=== PATIENT | female | born 1965 | race Caucasian/White ===

== ENCOUNTER → 2016-11-09 | Outpatient (CLI) | payer BC ==
[~2016-11-09] MED LIST: ASCA500 PO; BUPRTAB51 PO; CETI10TA84 PO; CHOL1000 PO; CYAN10005 PO; CYAN100T PO; FRRS300 PO; LORA-741 PO; MULT-506 PO; OMEG10007 PO; PRLSR20 PO; PYRI100T4 PO; RIZA10TA18 PO; SNG10 PO; SUMA100T16 PO; TOPI50TA24 PO; TRAZ50TA35 PO; VNTHFA/IN INH; [UNRECOGNIZED DRUG - REMARK]
--- NOTE | 2016-11-09 10:29 | DIAGNOSTIC IMAGING REPORT ---
(BARIUM SWALLOW) ESOPHAGUS CLINICAL HISTORY: Dysphagia. Laryngopharyngeal reflux. COMPARISON STUDY: None FLUOROSCOPY TIME: 1.9 minutes. FINDINGS: 27 fluoroscopic images were obtained. There was mild esophageal dysmotility. No esophageal mass or stricture was identified. No mucosal abnormality was identified. There was persistent holdup of a 13 mm barium tablet at the gastroesophageal junction. No stricture was identified at this level on the remainder of the images. IMPRESSION: 1. Persistent holdup of a 13 mm barium tablet at the gastroesophageal junction. No stricture identified at this level on the remainder of the images. This finding is of uncertain significance and a follow-up endoscopy is recommended to exclude an occult stricture. 2. Mild esophageal dysmotility. Electronically signed by: Servando Sheets M.D. 11/09/2016 10:28 AM Dictated Date/Time: 11/09/2016 10:26 AM
== END | disposition home or self-care (01) ==
LOC: C.RAD 09:33
PROVIDERS: ATTEND Surgery
DX: K21.9 Gastro-esophageal reflux disease without esophagitis (principal)

== ENCOUNTER → 2016-11-22 | Day surgery (SDC) | payer BC ==
[2016-11-21 13:07] VITALS: BMI 37.0
[~2016-11-22] VITALS: Ht 154.9 cm; Wt 89.5 kg
[~2016-11-22] MED LIST changes: -CYAN100T PO; -FRRS300 PO; +LIDOCAINE HCL 2% 2 ML VIAL (20MG/ML) ONE; +MIDAZOLAM HCL 1 MG/ML 2ML VIAL ONE; +ONDANSETRON INJ 2 MG/ML 2 ML VIAL ONE; +PROPOFOL IV EMULSION 10 MG/ML 20 ML VIAL IV ONE; -SNG10 PO; -SUMA100T16 PO; -[UNRECOGNIZED DRUG - REMARK]
[2016-11-22 08:15] VITALS: Ht 154.9 cm; Wt 89.5 kg
--- NOTE | 2016-11-22 08:38 | Endo History and Physical ---
History & Physical Date of Service: Nov 22, 2016. Chief Complaint: DYSPHAGIA Referring Physician: DR. MONTGOMERY History of Present Illness 51 yo CF who presents for EGD secondary to dysphagia. Past Surgical History Hx Cardiac Surgery: No Hx Internal Defibrillator: No Hx Pacemaker: No Hx Abdominal Surgery: Yes (UTERINE ABLATION) Hx of Implantable Prosthesis: No Hx Post-Op Nausea and Vomiting: No Hx Cancer Surgery: No Hx Thoracic Surgery: No Hx Orthopedic: Yes (LT HAND FINGER GROWTH REMOVAL) Hx Urinary Tract Surgery: No Family History None Social History Smoking Status: Never Smoker Hx Substance Use: No Hx Alcohol Use: No Allergies Uncoded Allergies: DECONGESTANTS (Adverse Reaction, Mild, INABILITY TO SLEEP, 11/21/16) Current Medications Reported Home Medications Medications Dose Route/Sig Max Daily Dose Days Date Category Vitamin B6 (Pyridoxine HCl) 100 Mg Tab 100 Mg PO QAM 11/21/16 Reported Vitamin D3 (Cholecalciferol) 1,000 Unit Tab 1 Tab PO QAM 11/21/16 Reported Vitamin C (Ascorbic Acid) 500 Mg Tab 1 Tab PO QAM 11/21/16 Reported Vitamin B-12 (Cyanocobalamin) 1,000 Mcg Tab 1,000 Mcg PO QAM 11/21/16 Reported Ventolin Hfa (Albuterol) 200 Puffs/99122 Mcg Aers 2-4 Puffs INH Q6H PRN 11/21/16 Reported Maxalt (Rizatriptan Benzoate) 10 Mg Tab 10 Mg PO UD PRN 11/21/16 Reported Prilosec (Omeprazole) 20 Mg Capcr 20 Mg PO QAM 11/21/16 Reported [place]-3 (Fish Oil) 1 Ea Cap 1 Cap PO BID 11/21/16 Reported Multivitamin (Multivitamins) Tab 1 Tab PO QAM 11/21/16 Reported Trazodone (Trazodone HCl) 50 Mg Tab 50 Mg PO HS PRN 11/21/16 Reported Ativan (Lorazepam) 0.5 Mg Tab 0.5 Mg PO Q4-6H PRN 11/21/16 Reported Zyrtec (Cetirizine HCl) 10 Mg Tab 10 Mg PO HS 11/21/16 Reported Topamax (Topiramate) 50 Mg Tab 50 Mg PO BID 11/21/16 Reported Wellbutrin Xl (Bupropion Hcl) 300 Mg Tab 450 Mg PO QAM 11/21/16 Reported Vital Signs Weight (Kilograms): 89.55 Height (Feet): 5 Height (Inches): 1 Date Time Temp Pulse Resp B/P Pulse Ox O2 Delivery O2 Flow Rate FiO2 11/22/16 08:16 36.8 77 20 133/81 96 Room Air Physical Exam General Appearance: WD/WN, no apparent distress Respiratory/Chest: Auscultation: breath sounds normal Cardiovascular: Heart Auscultation: RRR Abdomen: Bowel Sounds: normal Inspection & Palpation: soft, non-distended, no tenderness, guarding & rebound Assessment and Plan Assessment: 51 yo CF who presents for EGD secondary to dysphagia. Plan: Proceed with EGD.
--- NOTE | 2016-11-22 09:00 | GI REPORT ---
Procedure Date: 11/22/2016 8:11 AM Procedure: Upper GI endoscopy Indications: Dysphagia Medicines: Monitored Anesthesia Care Complications: No immediate complications. Estimated Blood Loss: Estimated blood loss: none. Procedure: Pre-Anesthesia Assessment: - Prior to the procedure, a History and Physical was performed, and patient medications and allergies were reviewed. The patient's tolerance of previous anesthesia was also reviewed. The risks and benefits of the procedure and the sedation options and risks were discussed with the patient. All questions were answered, and informed consent was obtained. Prior Anticoagulants: The patient has taken no previous anticoagulant or antiplatelet agents. ASA Grade Assessment: II - A patient with mild systemic disease. After reviewing the risks and benefits, the patient was deemed in satisfactory condition to undergo the procedure. After obtaining informed consent, the endoscope was passed under direct vision. Throughout the procedure, the patient's blood pressure, pulse, and oxygen saturations were monitored continuously. The scope was introduced through the mouth, and advanced to the second part of duodenum. The upper GI endoscopy was accomplished without difficulty. The patient tolerated the procedure well. Findings: No endoscopic abnormality was evident in the esophagus to explain the patient's complaint of dysphagia. It was decided, however, to proceed with dilation of the entire esophagus. A guidewire was placed and the scope was withdrawn. Dilation was performed with a Savary dilator with mild resistance at 54 Fr. A small hiatus hernia was present. Localized mild inflammation characterized by erythema was found in the gastric antrum. Biopsies were taken with a cold forceps for histology. The examined duodenum was normal. Impression: - No endoscopic esophageal abnormality to explain patient's dysphagia. Esophagus dilated. Dilated. - Small hiatus hernia. - Gastritis. Biopsied. - Normal examined duodenum. Recommendation: - Resume previous diet. - Continue present medications. - Await pathology results. - Return to GI office as previously scheduled. - If no improvement in symptoms, recommend formal esophageal manometry study. Leighton Easley, DO 11/22/2016 9:00:14 AM This report has been signed electronically. Note Initiated On: 11/22/2016 8:11 AM I attest to the content of the Intraoperative Record and orders documented therein, exceptions below
--- NOTE | 2016-11-22 09:05 | Discharge Instructions ---
Endoscopy Patient Instructions Date / Procedure(s) Performed Nov 22, 2016. EGD Allergy Information Uncoded Allergies: DECONGESTANTS (Adverse Reaction, Mild, INABILITY TO SLEEP, 11/21/16) Discharge Date / Findings Nov 22, 2016. Gastritis s/p biopsies Hiatal hernia Esophageal dysphagia s/p dilation Medication Instructions OK to resume all medications today as prescribed Reported Home Medications Medications Dose Route/Sig Max Daily Dose Days Date Category Vitamin B6 (Pyridoxine HCl) 100 Mg Tab 100 Mg PO QAM 11/21/16 Reported Vitamin D3 (Cholecalciferol) 1,000 Unit Tab 1 Tab PO QAM 11/21/16 Reported Vitamin C (Ascorbic Acid) 500 Mg Tab 1 Tab PO QAM 11/21/16 Reported Vitamin B-12 (Cyanocobalamin) 1,000 Mcg Tab 1,000 Mcg PO QAM 11/21/16 Reported Ventolin Hfa (Albuterol) 200 Puffs/80513 Mcg Aers 2-4 Puffs INH Q6H PRN 11/21/16 Reported Maxalt (Rizatriptan Benzoate) 10 Mg Tab 10 Mg PO UD PRN 11/21/16 Reported Prilosec (Omeprazole) 20 Mg Capcr 20 Mg PO QAM 11/21/16 Reported [place]-3 (Fish Oil) 1 Ea Cap 1 Cap PO BID 11/21/16 Reported Multivitamin (Multivitamins) Tab 1 Tab PO QAM 11/21/16 Reported Trazodone (Trazodone HCl) 50 Mg Tab 50 Mg PO HS PRN 11/21/16 Reported Ativan (Lorazepam) 0.5 Mg Tab 0.5 Mg PO Q4-6H PRN 11/21/16 Reported Zyrtec (Cetirizine HCl) 10 Mg Tab 10 Mg PO HS 11/21/16 Reported Topamax (Topiramate) 50 Mg Tab 50 Mg PO BID 11/21/16 Reported Wellbutrin Xl (Bupropion Hcl) 300 Mg Tab 450 Mg PO QAM 11/21/16 Reported Provider Instructions Activity Restrictions - No exercising or heavy lifting for 24 hours. - Do not drink alcohol the day of the procedure. - Do not drive a car or operate machinery until the day after the procedure. - Do not make any important decisions or sign important papers in 24 hours after the procedure. Following Day: - Return to full activity which may include returning to work/school. Diet Start your diet with liquids and light foods (jello, soup, juice, toast). Then eat your usual diet if not nauseated. Treatment For Common After Affects For mild abdominal pain, bloating, or excessive gas: - Rest - Eat lightly - Lie on right side Follow-Up Information Follow-up with DR. MONTGOMERY as scheduled Anesthesia Information What You Should Know You have had a procedure that required some medicine to reduce anxiety and discomfort. This treatment is called moderate sedation. After receiving the treatment, you may be sleepy, but you will be able to breathe on your own. The effects of the treatment may last for several hours. Follow these instructions along with Activity/Diet recommendations noted above: * Do NOT do anything where dizziness or clumsiness would be dangerous. * Rest quietly at home today, then you can be up and about tomorrow. * Have a responsible person stay with you the rest of today. * You may have had an I.V. today. If so, you may take the dressing off later today. Recommendations Call your doctor if: * Trouble breathing * Continuous vomiting for more than 24 hours * Temperature above 101 degrees * Severe abdominal pain or bloating * Pain not relieved by pain medicine ordered * There is increased drainage or redness from any incision * A large amount of rectal bleeding greater than 2-3 tablespoons. (If you had a polyp/s removed or have hemorrhoids, a small amount of blood - from the rectum is to be expected.) * You have any unanswered questions or concerns. IN THE EVENT OF A SERIOUS EMERGENCY, GO TO THE NEAREST EMERGENCY ROOM Your discharge instructions were prepared by provider Leighton Easley. Patient Instructions Signature Page Chasity Garg Patient (or Guardian) Signature/Date: I have read and understand the instructions given to me by my caregivers. Caregiver/RN/Doctor Signature/Date: The above-named patient and/or guardian has received patient instructions on this date. + Original Patient Signature Page (only) stays with chart. Please make copy for patient.
[2016-11-22 09:30] VITALS: BP 120/62; PULSE 67; O2SAT 100
--- NOTE | 2016-11-22 10:12 | Anesthesiology Progress Note ---
Anesthesia Post Op Note Date & Time Nov 22, 2016 at 10:11 Vital Signs Pain Intensity: 0 Vital Signs Past 12 Hours Date Time Temp Pulse Resp B/P Pulse Ox O2 Delivery O2 Flow Rate FiO2 11/22/16 09:30 67 20 120/62 100 Room Air 11/22/16 09:16 64 20 117/57 100 Room Air 11/22/16 09:01 75 20 102/56 98 Room Air 11/22/16 08:16 36.8 77 20 133/81 96 Room Air Notes Mental Status: alert / awake / arousable Nausea / Vomiting: adequately controlled Pain: adequately controlled Airway Patency, RR, SpO2: stable & adequate Hydration State: stable & adequate Anesthetic Complications: no major complications apparent
== END | disposition home or self-care (01) ==
LOC: C.GI 07:56
PROVIDERS: ATTEND Internal Medicine
DX: R13.10 Dysphagia, unspecified (principal); K44.9 Diaphragmatic hernia without obstruction or gangrene; K29.70 Gastritis, unspecified, without bleeding; Z98.890 Other specified postprocedural states

== ENCOUNTER → 2016-12-27 | Outpatient (CLI) | payer BC ==
[~2016-12-27] MED LIST changes: -LIDOCAINE HCL 2% 2 ML VIAL (20MG/ML) ONE; -MIDAZOLAM HCL 1 MG/ML 2ML VIAL ONE; -ONDANSETRON INJ 2 MG/ML 2 ML VIAL ONE; -PROPOFOL IV EMULSION 10 MG/ML 20 ML VIAL IV ONE
--- NOTE | 2016-12-27 12:55 | DIAGNOSTIC IMAGING REPORT ---
NUCLEAR GASTRIC EMPTYING STUDY: CLINICAL HISTORY: Nausea COMPARISON STUDY: None TECHNIQUE: Following the oral administration of 1.1 mCi of technetium 99m sulfur colloid in egg sandwich and 8 ounces of water, static abdominal images are performed anteriorly and posteriorly at 0 minutes, 1 hour, 2 hours, and 4 hour time intervals. Gastric emptying was calculated utilizing the geometric mean method. FINDINGS: There is approximately 74 % gastric activity remaining at the 1 hour time interval, 42 % at the 2 hour time interval (normal is less than 60%), and 2 % remaining at the 4 hour time interval (normal is less than 10%). These findings are consistent with a normal study IMPRESSION: Findings are consistent with a normal study Electronically signed by: John Grimm M.D. 12/27/2016 12:54 PM Dictated Date/Time: 12/27/2016 12:53 PM
== END | disposition home or self-care (01) ==
LOC: C.NUCL 08:21
PROVIDERS: ATTEND Physician Assistant
DX: R11.0 Nausea (principal)

== ENCOUNTER → 2016-12-27 | Outpatient (CLI) | payer BC ==
--- NOTE | 2016-12-28 07:55 | MAMMOGRAPHY REPORT ---
BILATERAL DIGITAL SCREENING MAMMOGRAM WITH CAD: 12/27/2016 CLINICAL HISTORY: Routine screening. Patient has no complaints. TECHNIQUE: Bilateral CC, MLO and repeat MLO views with more anterior compression were obtained. Cur rent study was also evaluated with a Computer Aided Detection (CAD) system. COMPARISON: Comparison is made to exams dated: 12/06/2015 mammogram, 12/02/2014 mammogram, 12/01/2013 mammogram, 09/12/2012 mammogram, and 09/01/2010 mammogram - [facility]. BREAST COMPOSITION: The tissue of both breasts is heterogeneously dense, which may obscure small ma sses. FINDINGS: There are bilateral circumscribed subcentimeter masses scattered in the breasts which eben ear generally stable from last years exam. There are a few stable benign-appearing microcalcificati ons. No new suspicious mass, architectural distortion or cluster of microcalcifications is seen. IMPRESSION: ACR BI-RADS CATEGORY 2: BENIGN There is no mammographic evidence of malignancy. A 1 year screening mammogram is recommended. The p atient will receive written notification of the results. Approximately 10% of breast cancers are not detected with mammography. A negative mammographic repor t should not delay biopsy if a clinically suggestive mass is present. Roslyn Davis M.D. ay/:12/27/2016 17:01:59 Chute Tapper: Gena MILIAN(Narciso)(Telma), [facility] letter sent: Normal 1/2 BI-RADS Code: ACR BI-RADS Category 2: Benign
== END | disposition home or self-care (01) ==
LOC: C.MAMM 15:58
PROVIDERS: ATTEND Obstetrics & Gynecology
DX: Z12.31 Encounter for screening mammogram for malignant neoplasm of breast (principal)

== ENCOUNTER → 2018-01-02 | Outpatient (CLI) | payer OTHER ==
--- NOTE | 2018-01-03 07:58 | MAMMOGRAPHY REPORT ---
BILATERAL DIGITAL SCREENING MAMMOGRAM TOMOSYNTHESIS WITH CAD: 01/02/2018 CLINICAL HISTORY: Routine screening. Patient has no complaints. TECHNIQUE: Breast tomosynthesis in addition to standard 2D mammography was performed. Current study was also evaluated with a Computer Aided Detection (CAD) system. COMPARISON: Comparison is made to exams dated: 12/27/2016 mammogram, 12/06/2015 mammogram, 12/02/2014 ma mmogram, 12/01/2013 mammogram, 09/12/2012 mammogram, and 09/12/2011 mammogram - [facility]. BREAST COMPOSITION: The tissue of both breasts is heterogeneously dense, which may obscure small mas ses. FINDINGS: There is fluctuating nodularity bilaterally. Stable focal asymmetry in the right upper ou ter quadrant. No obvious new suspicious mass, architectural distortion or cluster of microcalcificati ons is seen. IMPRESSION: ACR BI-RADS CATEGORY 2: BENIGN There is no mammographic evidence of malignancy. A 1 year screening mammogram is recommended. The pa tient will receive written notification of the results. Approximately 10% of breast cancers are not detected with mammography. A negative mammographic report should not delay biopsy if a clinically suggestive mass is present. Roslyn Davis M.D. ay/:01/02/2018 16:01:48 Take Up Supervisor: Kathrin MILIAN(Narciso)(M), [facility] letter sent: Normal 1/2 BI-RADS Code: ACR BI-RADS Category 2: Benign
== END | disposition home or self-care (01) ==
LOC: C.MAMM 15:32
PROVIDERS: ATTEND Obstetrics & Gynecology
DX: Z12.31 Encounter for screening mammogram for malignant neoplasm of breast (principal)